=== PATIENT | female | born 1965 | race Caucasian/White ===

== ENCOUNTER 2016-11-11 13:10 | Emergency (ER) | payer OTHER ==
--- NOTE | ~2016-11-11 | CR71 ---
[facility] A Service of [facility] & [facility] RADIOLOGY TEXT RESULTS PATIENT: RYAN COFFEY LOCATION: SED : 63 UNIT #: [id number] AGE: [address]: Ruth Ann Watson SEX: F ORDER DR: [id number] [place] [id number] E MR#: [id number] Acc #: [id number] NAME: RYAN COFFEY : 1965 SEX: F STUDY DATE/TIME: 11/11/2016 12:57 UNIT: SED ROOM: STUDY DESCRIPTION: CR Chest Single View Attending Physician: Ruth Ann Watson Pa-C Ordering Physician: Lj Ruiz M.D. Primary Care Physician: James Martinez M.D. MEDICAL IMAGING REPORT This report is preliminary unless electronic signature is present. EXAM Portable chest INDICATION 51-year-old female with cough and congestion for 1 week. COMPARISON 01/11/2016. FINDINGS There is stable scarring in the right base. Stable postoperative change in the right apex. Heart size normal. IMPRESSION No acute findings. Stable scarring in the right base and postoperative changes right apex. Dictated by... Chema Ballesteros M.D. THIS IS AN ELECTRONICALLY VERIFIED REPORT Chema Ballesteros M.D. at 11/11/2016 4:43 PM JOSEPH/adina TD: 11/11/2016 13:58 JOB #: [id number] MEDICAL IMAGING REPORT Page 1 of 1
[~2016-11-11 13:10] MED LIST: ALBUTEROL17 GM INH; CYMBALTA; DOXYCYCLINE150 MG; DULOXETINE HCL60 MG PO; ESCITALOPRAM OX10 MG PO; FLEXERIL10 MG PO; FLONASE 0.05% N16 G1; IBUPROFEN; MELOXICAM15 MG PO; NEURONTIN; NEURONTIN600 MG PO; PRILOSEC; PRILOSEC PO; VOLTAREN75 MG PO; ZITHROMAX PO
== END 2016-11-11 14:14 | disposition home or self-care (01) ==
LOC: SED 13:10
DX: J32.9 Chronic sinusitis, unspecified (principal); K21.9 Gastro-esophageal reflux disease without esophagitis; Z79.1 Long term (current) use of non-steroidal anti-inflammatories (NSAID); Z79.899 Other long term (current) drug therapy; Z88.0 Allergy status to penicillin; Z88.2 Allergy status to sulfonamides; Z88.5 Allergy status to narcotic agent; Z88.1 Allergy status to other antibiotic agents; Z91.040 Latex allergy status; Z88.8 Allergy status to other drugs, medicaments and biological substances
CPT/HCPCS: 71010; 99283